=== PATIENT | male | born 1965 | race Caucasian/White ===

== ENCOUNTER → 2018-03-28 | Outpatient (CLI) | payer OTHER ==
--- NOTE | 2018-03-28 12:17 | MR ---
EXAMINATION TYPE: MR brain wo/w mrane wo/wcon DATE OF EXAM: 03/28/2018 COMPARISON: NONE HISTORY: Dizziness x 1-2 years TECHNIQUE: Multiplanar, multisequence images of the brain and brainstem is performed without and with IV contras t, utilizing 7.5 mL intravenous Gadavist . MRA of the neck was also performed. FINDINGS: Midline structures are unremarkable. There is a normal craniocervical junction. Echoplanar diffusion imaging is normal. There are normal vascular flow voids. The orbits are normal. There is no evidence of a CP angle mass lesion. No acute focal lesion, mass effect or midline shift is seen. I do not see evidence of intracranial bl ood. Following the intravenous administration of gadolinium, I do not see evidence of abnormal enhancement . The vertebral arteries are codominant. There is no significant stenosis in either carotid system. There is a normal origin of the great vess els. IMPRESSION: 1. NORMAL MRI OF THE BRAIN. 2. NO SIGNIFICANT CAROTID OR VERTEBRAL STENOSIS.
== END | disposition home or self-care (01) ==
LOC: RADMRIMAIN 08:47
PROVIDERS: ATTEND Psychiatry & Neurology Neurology
DX: R42 Dizziness and giddiness (principal); R51 Headache; R55 Syncope and collapse; H53.9 Unspecified visual disturbance
CPT/HCPCS: 70549; 70553; A9581

== ENCOUNTER → 2019-04-20 | Outpatient (CLI) | payer OTHER ==
--- NOTE | 2019-04-20 13:05 | XR ---
Abdomen HISTORY: Left lower quadrant pain Frontal view of the abdomen No comparisons There is a marked scoliosis. No evident obstruction, pneumoperitoneum or pathologic calcification. Brit ng bases are clear. IMPRESSION: Levoscoliosis centered at the upper lumbar spine.
== END | disposition home or self-care (01) ==
LOC: RADXRMAIN 11:16
PROVIDERS: ATTEND Family Medicine
DX: Z09 Encounter for follow-up examination after completed treatment for conditions other than malignant neoplasm (principal); Z87.442 Personal history of urinary calculi; M41.86 Other forms of scoliosis, lumbar region
CPT/HCPCS: 74018

== ENCOUNTER → 2019-09-07 | Outpatient (CLI) | payer OTHER ==
[2019-09-07 22:35] LABS: Total Protein,CSF 49 mg/dL (12-60)
[2019-09-08 08:38] LABS: CSF Tube Number 4
[2019-09-08 08:39] LABS: Appearance,CSF Clear; CSF Tube Volume 2.5
[2019-09-08 08:40] LABS: Nucleated Cells, CSF 6 u/L (0-5); Red Blood Cell,CSF 5 u/L (0-10)
[2019-09-10 14:16] LABS: IgG - CSF 2.1 mg/dL (0.0 - 3.4); IgG/Albumin Index (CSF) 0.55 (0.00 - 0.77); Immunoglobulin G 711 mg/dL (700 - 1600)
== END | disposition home or self-care (01) ==
LOC: LABWHC1 08:32
PROVIDERS: ATTEND Psychiatry & Neurology Pain Medicine
DX: R90.82 White matter disease, unspecified (principal); R42 Dizziness and giddiness; R51 Headache
CPT/HCPCS: 36415; 82040; 82042; 82784; 83873; 83916; 84157; 87529; 87801; 88108; 89050

== ENCOUNTER 2019-09-27 13:10 | Emergency (ER) | payer OTHER ==
[2019-09-27 13:20] VITALS: BP 124/58; PULSE 58; RESP 19; TEMP 98.6
--- NOTE | 2019-09-27 13:36 | ED ---
Lower Extremity Injury HPI - General Chief Complaint: Extremity Injury, Lower Stated Complaint: Foot Injury Time Seen by Provider: 09/27/19 13:22 Source: patient, RN notes reviewed Mode of arrival: wheelchair Limitations: no limitations - History of Present Illness Initial Comments: 54-year-old male presents emergency Department chief complaint left foot pain. Patient states in the middle of his sleep last night, he had a dream states that he kicked a wall. Patient states that his bed is right next to the wall . Patient complains of pain of his left first digit and first metatarsal. Patient denies any prior fractures. Patient denies any paresthesias. No history of gout. Patient does admit that he has a bunion. - Related Data Home Medications Medication Instructions Recorded Confirmed Meclizine HCl [Bonine] 25 mg PO TID PRN 09/27/19 09/27/19 Allergies Allergy/AdvReac Type Severity Reaction Status Date / Time No Known Allergies Allergy Verified 09/27/19 13:44 Review of Systems ROS Statement: Those systems with pertinent positive or pertinent negative responses have been documented in the HPI. ROS Other: All systems not noted in ROS Statement are negative. Past Medical History Past Medical History: No Reported History History of Any Multi-Drug Resistant Organisms: None Reported Past Surgical History: No Surgical Hx Reported Past Psychological History: Bipolar Smoking Status: Current every day smoker Past Alcohol Use History: Occasional Past Drug Use History: Marijuana General Exam Limitations: no limitations General appearance: alert, in no apparent distress Head exam: Present: atraumatic, normocephalic, normal inspection Eye exam: Present: normal appearance, PERRL, EOMI. Absent: scleral icterus, conjunctival injection, periorbital swelling Respiratory exam: Present: normal lung sounds bilaterally. Absent: respiratory distress, wheezes, rales, rhonchi, stridor Cardiovascular Exam: Present: regular rate, normal rhythm, normal heart sounds. Absent: systolic murmur, diastolic murmur, rubs, gallop, clicks Extremities exam: Present: other (Left foot first digit and first metatarsal region there is tenderness to palpation mild swelling no ecchymosis.) Course Vital Signs 09/27/19 13:18 Temperature 98.6 F Pulse Rate 58 L Respiratory 19 Rate Blood Pressure 124/58 O2 Sat by Pulse 95 Oximetry Medical Decision Making - Medical Decision Making X-ray of the foot are negative for acute fracture. Patient's left foot contusion. Patient we discharged return parameters discussed. Disposition Clinical Impression: Contusion of left foot, Sprain of left foot Disposition: HOME SELF-CARE Condition: Stable Instructions (If sedation given, give patient instructions): Foot Contusion (ED) Additional Instructions: Please return to the Emergency Department if symptoms worsen or any other concerns. Is patient prescribed a controlled substance at d/c from ED?: No Referrals: Whit Henley MD [Primary Care Provider] - 1-2 days Time of Disposition: 14:01
--- NOTE | 2019-09-27 13:56 | XR ---
EXAMINATION TYPE: XR foot complete LT DATE OF EXAM: 09/27/2019 COMPARISON: NONE HISTORY: Pain TECHNIQUE: Three views are submitted. FINDINGS: The osseous structures are intact. There is no acute fracture or dislocation. Joint spaces are p reserved. IMPRESSION: 1. No acute fracture or dislocation. If symptoms persist, follow-up exam in 7 to 10 days could be ob tained.
== END 2019-09-27 14:07 | disposition home or self-care (01) ==
LOC: EC 13:10
DX: S93.602A Unspecified sprain of left foot, initial encounter (principal); F17.200 Nicotine dependence, unspecified, uncomplicated; W22.01XA Walked into wall, initial encounter
CPT/HCPCS: 99283

== ENCOUNTER → 2019-12-15 | Outpatient (CLI) | payer OTHER ==
--- NOTE | 2019-12-15 10:44 | US ---
EXAMINATION TYPE: US thyroid st tissue head/neck DATE OF EXAM: 12/15/2019 COMPARISON: NONE CLINICAL HISTORY: E04.1 THYROID NODULE. thyroid nodule GLAND SIZE: Right Lobe: 5.3 x 2.1 x 1.9 cm Overall Parenchyma: homogenous Left Lobe: 5.2 x 2.6 x 1.9 cm Overall Parenchyma: homogeneous Isthmus Thickness: 0.4 cm NODULES RIGHT: # of nodules measured on right: 0 LEFT: # of nodules measured on left: 1 1. 2.0 X 1.5 x 1.4 cm isoechoic nodule at the mid pole with poorly defined margins; . This nodule is wider than tall and shows intranodular vascularity. Prior size: no prior ISTHMUS: # of nodules measured in the isthmus: 0 Bilateral neck scanned, lymph nodes noted bilaterally IMPRESSION: 1. Thyromegaly with 2 cm left thyroid nodule
--- NOTE | 2019-12-15 10:47 | US ---
EXAMINATION TYPE: US abdomen complete DATE OF EXAM: 12/15/2019 COMPARISON: NONE CLINICAL HISTORY: R10.9 LEFT FLANK PAIN,R10.13 RLQ PAIN. lower abdominal pain EXAM MEASUREMENTS: Liver Length: 15.2 cm Gallbladder Wall: 0.3 cm CBD: 0.3 cm Spleen: 8.9 cm Right Kidney: 10.5 x 3.1 x 3.3 cm Left Kidney: 10.8 x 4.5 x 3.9 cm Pancreas: visualized portions appear Limited by bowel gas Liver: wnl Gallbladder: no evidence of stones Evidence for sonographic Dunn's sign: no CBD: wnl Spleen: appears wnl Right Kidney: no evidence of hydronephrosis Left Kidney: no evidence of hydronephrosis or nephrolithiasis. Somewhat lobulated margins of the lef t renal cortex. Upper IVC: wnl Abd Aorta: wnl IMPRESSION: 1. Lobulated margin left renal cortex. This could be developmental however, recommend CT scan of the abdomen pelvis for further evaluation
== END | disposition home or self-care (01) ==
LOC: RADUSWWP 09:42
PROVIDERS: ATTEND Family Medicine
DX: N28.89 Other specified disorders of kidney and ureter (principal); E04.1 Nontoxic single thyroid nodule
CPT/HCPCS: 76536; 76700

== ENCOUNTER 2020-07-31 14:37 | Emergency (ER) | payer OTHER ==
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
[2020-07-31] MEDS ORDERED: SODIUM CHLORIDE 0.9% 1,000 ML IV STA (15:17)
[2020-07-31 15:54] LABS: Basophils % (A) 1 %; Eosinophils # (A) 0.1 k/uL (0-0.7); Eosinophils % (A) 2 %; HCT 41.2 % (39.0-53.0); HGB 13.6 gm/dL (13.0-17.5); Lymphocytes # (A) 1.5 k/uL (1.0-4.8); Lymphocytes % (A) 30 %; MCH 33.6 pg (25.0-35.0); MCV 101.9 fL (80.0-100.0); Mean Platelet Volume 7.9; Monocytes # (A) 0.6 k/uL (0-1.0); Monocytes % (A) 13 %; Neutrophils # (A) 2.6 k/uL (1.3-7.7); Neutrophils % (A) 52 %; Platelet Count 160 k/uL (150-450); RBC 4.04 m/uL (4.30-5.90); RDW 12.7 % (11.5-15.5)
[2020-07-31 16:01] LABS: Appearance,Urine Clear (Clear); Bilirubin,Urine Negative (Negative); Blood,Urine Negative (Negative); Color,Urine Yellow; Glucose,Urine (UA) Negative (Negative); Ketones,Urine Trace (Negative); Leukocyte Esterase,Urine Negative (Negative); Mucus,Urine Many /hpf; Nitrite,Urine Negative (Negative); Protein,Urine 1+ (Negative); RBC,Urine 2 /hpf (0-5); Specific Gravity,Urine 1.036 (1.001-1.035); WBC,Urine 1 /hpf (0-5)
[2020-07-31 16:03] LABS: ALT 76 U/L (4-49); AST 157 U/L (17-59); African American GFR (CKD) >90 (>60 ml/min/1.73 sqM); Albumin 4.6 g/dL (3.5-5.0); Alkaline Phosphatase 53 U/L (38-126); Anion Gap 8 mmol/L; Blood Urea Nitrogen 19 mg/dL (9-20); Calcium 9.8 mg/dL (8.4-10.2); Carbon Dioxide 30 mmol/L (22-30); Chloride 97 mmol/L (98-107); Glucose 111 mg/dL (74-99); Non-African American GFR(CKD) >90 (>60 ml/min/1.73 sqM); Potassium 4.1 mmol/L (3.5-5.1); Sodium 135 mmol/L (137-145); Total Bilirubin 1.4 mg/dL (0.2-1.3); Total Protein 6.8 g/dL (6.3-8.2)
[2020-07-31 16:51] VITALS: BP 134/78; PULSE 78; RESP 16; TEMP 98
== END 2020-07-31 16:50 | disposition home or self-care (01) ==
LOC: EC 14:37
DX: R63.0 Anorexia (principal); R94.5 Abnormal results of liver function studies; F17.200 Nicotine dependence, unspecified, uncomplicated
CPT/HCPCS: 36415; 80053; 81001; 83630; 85025; 87045; 87046; 87328; 87329; 96360; 99283

== ENCOUNTER 2020-11-03 16:59 | Emergency (ER) | payer OTHER ==
[2020-11-03 17:33] VITALS: BP 115/70; PULSE 103; RESP 18; TEMP 97.7
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
== END 2020-11-03 19:58 | disposition home or self-care (01) ==
LOC: EC 16:59
DX: S06.0X0A Concussion without loss of consciousness, initial encounter (principal); F17.200 Nicotine dependence, unspecified, uncomplicated; T74.11XA Adult physical abuse, confirmed, initial encounter; Y04.0XXA Assault by unarmed brawl or fight, initial encounter; Y07.9 Unspecified perpetrator of maltreatment and neglect
CPT/HCPCS: 70450; 99284

== ENCOUNTER 2021-04-15 13:46 | Emergency (ER) | payer OTHER ==
[2021-04-15 14:00] VITALS: RESP 18
[2021-04-15] MEDS ORDERED: METOCLOPRAMIDE 5 MG/ML 2 ML VIAL IVP STA (14:15)
[2021-04-15] MEDS ORDERED: HYDROmorphone 0.5 MG/0.5 ML SYRINGE IVP STA (14:15)
--- NOTE | 2021-04-15 14:18 | ED ---
General Adult HPI - General Chief complaint: Abdominal Pain Stated complaint: Abdominal Pain Time Seen by Provider: 04/15/21 14:03 Source: patient, EMS Mode of arrival: EMS Limitations: no limitations - History of Present Illness Initial comments: Dictation was produced using Smart Ball[employer] dictation software. please excuse any grammatical, word or spelling errors. Chief Complaint: 56-year-old male with past medical history of unspecified g allbladder disease, alcohol abuse and marijuana use presents to the emergency department for abdominal pain nausea History of Present Illness: Is 56-year-old male he does not have any significant comorbidities. States that he is here today for 4 days history of abdominal pain. States that it's in the left flank left upper abdomen and radiates to the abdomen. States that it severe. These have been nonbilious nonbloody emesis. Patient's history of kidney stones that required lithotripsy several years ago. He stopped was told several years ago also that he had gallbladder disease however he hasn't had any gallbladder issues recently. States that he has not been eating or drinking because patient complains of pain with ingestion. The ROS documented in this emergency department record has been reviewed and confirmed by me. Those systems with pertinent positive or negative responses have been documented in the HPI. All other systems are other negative and/or noncontributory. PHYSICAL EXAM: General Impression: Alert and oriented x3, not in acute distress HEENT: Normocephalic atraumatic, extra-ocular movements intact, pupils equal and reactive to light bilaterally, mucous membranes moist. Cardiovascular: Heart regular rate and rhythm Chest: Able to complete full sentences, no retractions, no tachypnea Abdomen: abdomen soft, tenderness to palpation of the left upper quadrant, non- distended, no organomegaly Musculoskeletal: Pulses present and equal in all extremities, no peripheral edema Motor: no focal deficits noted Neurological: CN II-XII grossly intact, no focal motor or sensory deficits noted Skin: Intact with no visualized rashes Psych: Normal affect and mood ED course: 56-year-old male presents to emergency department for severe abdominal pain and nausea. Vital signs upon arrival are within acceptable limits. Laboratory evaluation obtained. CBC is unremarkable. Metabolic panel shows bicarb of 21 with a gap of 18. Patient has been drinking alcohol. Alcohol level LXV. AST 376 to the ALT 135. This likely represents alcoholic ketoacidosis with alcoholic hepatitis. Patient reevaluated at bedside and states that he does drink several ounces of whiskey daily. Patient states that he has had withdrawals in the past. Computed tomography scan of the abdomen and pelvis was obtained showing no definite acute at about 8. There is hepatomegaly with steatosis. Disposition options were discussed with patient. Patient is agreeable with discharge. Patient likely suffering from symptoms of gastritis. Patient denies having any withdrawal symptoms currently. He wants to be discharge. Patient given prescription for antibiotics, Librium and panto prazole. Patient given referral to GI doctor. Return precautions discussed. EKG interpretation: Ventricular rate 85, normal sinus rhythm,. Interval 126, QRS 90, QTC 480. No TX prolongation, no QTC prolongation, no ST or T-wave changes noted. Overall, this EKG is unremarkable - Related Data Home Medications Medication Instructions Recorded Confirmed Meclizine HCl [Bonine] 25 mg PO TID PRN 09/27/19 09/27/19 Previous Rx's Medication Instructions Recorded Ondansetron Odt [Zofran Odt] 4 mg PO Q8HR PRN #24 tab 04/15/21 Pantoprazole Sodium [Protonix] 40 mg PO DAILY #24 tablet. 04/15/21 chlordiazePOXIDE HCl [Librium] 25 mg PO QID 3 Days #15 capsule 04/15/21 Allergies Allergy/AdvReac Type Severity Reaction Status Date / Time No Known Allergies Allergy Verified 11/03/20 17:33 Review of Systems ROS Statement: Those systems with pertinent positive or pertinent negative responses have been documented in the HPI. ROS Other: All systems not noted in ROS Statement are negative. Past Medical History Past Medical History: No Reported History Additional Past Medical History / Comment(s): vertigo, kidney stones, ETOH abuse History of Any Multi-Drug Resistant Organisms: None Reported Past Surgical History: No Surgical Hx Reported Additional Past Surgical History / Comment(s): lithrothripsy Past Psychological History: Bipolar Smoking Status: Current every day smoker Past Alcohol Use History: Abuse, Heavy Past Drug Use History: Marijuana General Exam Limitations: no limitations Course Vital Signs 04/15/21 04/15/21 13:56 15:31 Temperature 98.2 F 98.1 F Pulse Rate 84 91 Respiratory 18 18 Rate Blood Pressure 149/90 121/78 O2 Sat by Pulse 98 98 Oximetry Medical Decision Making - Lab Data Result diagrams: 04/15/21 14:20 04/15/21 14:20 Lab Results 04/15/21 04/15/21 Range/Units 14:20 14:20 WBC 4.9 (3.8-10.6) k/uL RBC 4.13 L (4.30-5.90) m/uL Hgb 14.5 (13.0-17.5) gm/dL Hct 40.7 (39.0-53.0) % MCV 98.7 (80.0-100.0) fL MCH 35.1 H (25.0-35.0) pg MCHC 35.6 (31.0-37.0) g/dL RDW 12.5 (11.5-15.5) % Plt Count 157 (150-450) k/uL MPV 7.8 Neutrophils % 61 % Lymphocytes % 26 % Monocytes % 9 % Eosinophils % 1 % Basophils % 1 % Neutrophils # 3.0 (1.3-7.7) k/uL Lymphocytes # 1.3 (1.0-4.8) k/uL Monocytes # 0.4 (0-1.0) k/uL Eosinophils # 0.1 (0-0.7) k/uL Basophils # 0.0 (0-0.2) k/uL Sodium 140 (137-145) mmol/L Potassium 3.7 (3.5-5.1) mmol/L Chloride 101 (98-107) mmol/L Carbon Dioxide 21 L (22-30) mmol/L Anion Gap 18 mmol/L BUN 16 (9-20) mg/dL Creatinine 1.01 (0.66-1.25) mg/dL Est GFR (CKD-EPI)AfAm >90 (>60 ml/min/1.73 sqM) Est GFR (CKD-EPI)NonAf 84 (>60 ml/min/1.73 sqM) Glucose 110 H (74-99) mg/dL Calcium 10.8 H (8.4-10.2) mg/dL Total Bilirubin 1.5 H (0.2-1.3) mg/dL AST 376 H (17-59) U/L ALT 135 H (4-49) U/L Alkaline Phosphatase 76 (38-126) U/L Total Protein 7.9 (6.3-8.2) g/dL Albumin 5.5 H (3.5-5.0) g/dL Lipase 51 (23-300) U/L Serum Alcohol 65 mg/dL Disposition Clinical Impression: Nausea & vomiting, Gastritis Disposition: HOME SELF-CARE Condition: Fair Instructions (If sedation given, give patient instructions): Abuse of Alcohol (ED), Gastritis (ED) Prescriptions: chlordiazePOXIDE HCl [Librium] 25 mg PO QID 3 Days #15 capsule Pantoprazole Sodium [Protonix] 40 mg PO DAILY #24 tablet. Ondansetron Odt [Zofran Odt] 4 mg PO Q8HR PRN #24 tab PRN Reason: Nausea Is patient prescribed a controlled substance at d/c from ED?: Yes If prescribed controlled substance>3 days was MAPS reviewed?: Prescribed <3 Days Referrals: Whit Henley MD [Primary Care Provider] - 1-2 days Shadi Yoo MD [STAFF PHYSICIAN] - 1-2 days Time of Disposition: 16:10
[2021-04-15 14:38] LABS: Basophils % (A) 1 %; Eosinophils # (A) 0.1 k/uL (0-0.7); Eosinophils % (A) 1 %; HCT 40.7 % (39.0-53.0); HGB 14.5 gm/dL (13.0-17.5); Lymphocytes # (A) 1.3 k/uL (1.0-4.8); Lymphocytes % (A) 26 %; MCH 35.1 pg (25.0-35.0); MCHC 35.6 g/dL (31.0-37.0); MCV 98.7 fL (80.0-100.0); Mean Platelet Volume 7.8; Monocytes # (A) 0.4 k/uL (0-1.0); Monocytes % (A) 9 %; Neutrophils % (A) 61 %; Platelet Count 157 k/uL (150-450); RBC 4.13 m/uL (4.30-5.90); RDW 12.5 % (11.5-15.5); WBC 4.9 k/uL (3.8-10.6)
[2021-04-15 14:57] LABS: ALT 135 U/L (4-49); AST 376 U/L (17-59); African American GFR (CKD) >90 (>60 ml/min/1.73 sqM); Albumin 5.5 g/dL (3.5-5.0); Alcohol 65 mg/dL; Alkaline Phosphatase 76 U/L (38-126); Anion Gap 18 mmol/L; Blood Urea Nitrogen 16 mg/dL (9-20); Calcium 10.8 mg/dL (8.4-10.2); Carbon Dioxide 21 mmol/L (22-30); Chloride 101 mmol/L (98-107); Glucose 110 mg/dL (74-99); Lipase 51 U/L (23-300); Non-African American GFR(CKD) 84 (>60 ml/min/1.73 sqM); Potassium 3.7 mmol/L (3.5-5.1); Sodium 140 mmol/L (137-145); Total Bilirubin 1.5 mg/dL (0.2-1.3); Total Protein 7.9 g/dL (6.3-8.2)
--- NOTE | 2021-04-15 15:55 | CT ---
EXAMINATION TYPE: CT abdomen pelvis w con DATE OF EXAM: 04/15/2021 COMPARISON: Ultrasound 12/15/2019. HISTORY: abdominal pain CT DLP: 563.1 mGycm Automated exposure control for dose reduction was used. TECHNIQUE: Helical acquisition of images was performed from the lung bases through the pelvis. CONTRAST: Performed without Oral Contrast and with IV Contrast, patient injected with 100 mL of Isovue 300. FINDINGS: LUNG BASES: No significant abnormality is appreciated. LIVER/GB: No acute abnormality is appreciated. Hepatomegaly with steatosis. PANCREAS: No significant abnormality is seen. SPLEEN: No significant abnormality is seen. ADRENALS: No significant abnormality is seen. KIDNEYS: No significant abnormality is seen. FREE AIR: No free air is visualized. RETROPERITONEAL ADENOPATHY: None visualized REPRODUCTIVE ORGANS: No significant abnormality is seen URINARY BLADDER: No significant abnormality is seen. PELVIC ADENOPATHY: None visualized. OSSEOUS STRUCTURES: No acute abnormality is seen. S-shaped scoliosis. Otherwise mild to moderate lum bar spondylosis. BOWEL: No significant abnormality is seen. OTHER: None IMPRESSION: NO DEFINITE ACUTE ABNORMALITY. HEPATOMEGALY WITH STEATOSIS. Scoliosis.
[2021-04-15] MEDS ORDERED: SODIUM CHLORIDE 0.9% 1,000 ML IV STA (15:56)
[2021-04-15] MEDS ORDERED: MAG HYDROX/AL HYDROX/SIMETH 30 ML, HYOSCYAMINE ELIXIR 10 ML, LIDOCAINE VISCOUS 2% 10 ML PO STA ×3 (16:04)
[2021-04-15 17:00] VITALS: BP 126/82; PULSE 78; TEMP 98.5
== END 2021-04-15 17:00 | disposition home or self-care (01) ==
LOC: EC 13:46
DX: K29.70 Gastritis, unspecified, without bleeding (principal); F17.200 Nicotine dependence, unspecified, uncomplicated; F12.90 Cannabis use, unspecified, uncomplicated; Z87.442 Personal history of urinary calculi
CPT/HCPCS: 36415; 93005; 80053; 83690; 85025; 74177; 99284; 96374; 96375; 96361; G0480; J2765; J1170; Q9967; 80320

== ENCOUNTER 2021-07-08 21:17 | Emergency (ER) | payer OTHER ==
[2021-07-08] MEDS ORDERED: KETOROLAC 15 MG/ML 1 ML VIAL IVP STA (21:39)
[2021-07-08] MEDS ORDERED: METOCLOPRAMIDE 5 MG/ML 2 ML VIAL IVP STA (21:39)
[2021-07-08] MEDS ORDERED: SODIUM CHLORIDE 0.9% 1,000 ML IV ONE (21:39)
--- NOTE | 2021-07-08 21:44 | ED ---
Abdominal Pain HPI - General Chief Complaint: Abdominal Pain Stated Complaint: poss kidney stone Time Seen by Provider: 07/08/21 21:26 Source: patient Mode of arrival: ambulatory Limitations: no limitations - History of Present Illness Initial Comments: This patient is a 56-year-old man who presents with complaint of vomiting and left flank pain. The patient was in his usual state of health until , going into Friday, when he started having nausea and has also had vomiting. He denied having any pain until yesterday when he started having left flank pain that he states remind him of previous kidney stone. He has continued to have multiple rounds of vomiting today stating that is been going on all day. He has not noted fever or chills. No change in bowel movements. No change in urination noted. MD Complaint: abdominal pain -: days(s) Location: L flank Radiation: none Migration to: no migration Severity: severe Quality: sharp Consistency: constant Improves With: nothing Worsens With: nothing Associated Symptoms: nausea, vomiting - Related Data Home Medications Medication Instructions Recorded Confirmed Desvenlafaxine [Pristiq ER] 100 mg PO DAILY 07/08/21 07/08/21 Divalproex ER [Depakote ER] 500 mg PO HS 07/08/21 07/08/21 [place] Carbonate 900 mg PO DAILY 07/08/21 07/08/21 QUEtiapine [SEROquel] 100 mg PO HS PRN 07/08/21 07/08/21 Allergies Allergy/AdvReac Type Severity Reaction Status Date / Time No Known Allergies Allergy Verified 07/08/21 22:21 Review of Systems ROS Statement: Those systems with pertinent positive or pertinent negative responses have been documented in the HPI. ROS Other: All systems not noted in ROS Statement are negative. Constitutional: Denies: fever, chills Respiratory: Denies: cough, dyspnea Cardiovascular: Denies: chest pain, palpitations, edema, syncope Gastrointestinal: Reports: abdominal pain, nausea, vomiting. Denies: diarrhea, constipation, hematemesis, melena, hematochezia Genitourinary: Denies: dysuria, frequency, hematuria, testicular pain, testicular mass Musculoskeletal: Denies: back pain Skin: Denies: rash Neurological: Denies: headache, weakness, numbness Past Medical History Past Medical History: No Reported History Additional Past Medical History / Comment(s): vertigo, kidney stones, ETOH abuse History of Any Multi-Drug Resistant Organisms: None Reported Past Surgical History: No Surgical Hx Reported Additional Past Surgical History / Comment(s): lithrothripsy Past Psychological History: Bipolar Smoking Status: Current every day smoker Past Alcohol Use History: Abuse, Heavy Past Drug Use History: Marijuana General Exam Limitations: no limitations General appearance: alert, in no apparent distress Head exam: Present: atraumatic, normocephalic Eye exam: Present: normal appearance. Absent: scleral icterus, conjunctival injection ENT exam: Present: normal oropharynx Neck exam: Present: normal inspection Respiratory exam: Present: normal lung sounds bilaterally. Absent: respiratory distress, wheezes, rales, rhonchi, stridor Cardiovascular Exam: Present: regular rate, normal rhythm, normal heart sounds. Absent: systolic murmur, diastolic murmur, rubs, gallop GI/Abdominal exam: Present: soft. Absent: distended, tenderness, guarding, rebound, rigid, mass Extremities exam: Present: normal inspection, normal capillary refill. Absent: pedal edema, calf tenderness Back exam: Present: normal inspection. Absent: CVA tenderness (R), CVA tenderness (L), paraspinal tenderness, vertebral tenderness Neurological exam: Present: alert Skin exam: Present: warm, dry, intact, normal color. Absent: rash Course Vital Signs 07/08/21 07/08/21 21:18 23:21 Temperature 97.9 F 98.7 F Pulse Rate 97 96 Respiratory 20 18 Rate Blood Pressure 123/81 147/99 O2 Sat by Pulse 99 100 Oximetry Medical Decision Making - Lab Data Result diagrams: 07/08/21 21:57 07/08/21 21:57 Lab Results 07/08/21 07/08/21 07/08/21 Range/Units 21:57 21:57 21:57 WBC 4.5 (3.8-10.6) k/uL RBC 4.11 L (4.30-5.90) m/uL Hgb 14.8 (13.0-17.5) gm/dL Hct 41.6 (39.0-53.0) % MCV 101.4 H (80.0-100.0) fL MCH 36.1 H (25.0-35.0) pg MCHC 35.6 (31.0-37.0) g/dL RDW 13.0 (11.5-15.5) % Plt Count 191 (150-450) k/uL MPV 7.1 Neutrophils % 69 % Lymphocytes % 21 % Monocytes % 5 % Eosinophils % 1 % Basophils % 1 % Neutrophils # 3.1 (1.3-7.7) k/uL Lymphocytes # 0.9 L (1.0-4.8) k/uL Monocytes # 0.2 (0-1.0) k/uL Eosinophils # 0.0 (0-0.7) k/uL Basophils # 0.1 (0-0.2) k/uL Sodium 137 (137-145) mmol/L Potassium 3.6 (3.5-5.1) mmol/L Chloride 97 L (98-107) mmol/L Carbon Dioxide 23 (22-30) mmol/L Anion Gap 17 mmol/L BUN 15 (9-20) mg/dL Creatinine 0.74 (0.66-1.25) mg/dL Est GFR (CKD-EPI)AfAm >90 (>60 ml/min/1.73 sqM) Est GFR (CKD-EPI)NonAf >90 (>60 ml/min/1.73 sqM) Glucose 114 H (74-99) mg/dL Calcium 10.4 H (8.4-10.2) mg/dL Total Bilirubin 1.5 H (0.2-1.3) mg/dL AST 159 H (17-59) U/L ALT 92 H (4-49) U/L Alkaline Phosphatase 75 (38-126) U/L Total Protein 7.7 (6.3-8.2) g/dL Albumin 5.3 H (3.5-5.0) g/dL Amylase 41 (30-110) U/L Lipase 30 (23-300) U/L Urine Color Yellow Urine Appearance Clear (Clear) Urine pH 5.5 (5.0-8.0) Ur Specific [place] 1.031 (1.001-1.035) Urine Protein 1+ H (Negative) Urine Glucose (UA) Negative (Negative) Urine Ketones 2+ H (Negative) Urine Blood Negative (Negative) Urine Nitrite Negative (Negative) Urine Bilirubin Negative (Negative) Urine Urobilinogen 4.0 (<2.0) mg/dL Ur Leukocyte Esterase Negative (Negative) Urine RBC 1 (0-5) /hpf Urine WBC 1 (0-5) /hpf Ur Squamous Epith Cells 1 (0-4) /hpf Hyaline Casts 1 (0-2) /lpf Urine Mucus Occasional H (None) /hpf Disposition Clinical Impression: Flank pain, Vomiting Disposition: HOME SELF-CARE Condition: Good Instructions (If sedation given, give patient instructions): Abdominal Pain (ED) Is patient prescribed a controlled substance at d/c from ED?: No Referrals: Whit Henley MD [Primary Care Provider] - 1-2 days
[2021-07-08 22:10] LABS: Basophils # (A) 0.1 k/uL (0-0.2); Basophils % (A) 1 %; Eosinophils % (A) 1 %; HCT 41.6 % (39.0-53.0); HGB 14.8 gm/dL (13.0-17.5); Lymphocytes # (A) 0.9 k/uL (1.0-4.8); Lymphocytes % (A) 21 %; MCH 36.1 pg (25.0-35.0); MCHC 35.6 g/dL (31.0-37.0); MCV 101.4 fL (80.0-100.0); Mean Platelet Volume 7.1; Monocytes # (A) 0.2 k/uL (0-1.0); Monocytes % (A) 5 %; Neutrophils # (A) 3.1 k/uL (1.3-7.7); Neutrophils % (A) 69 %; Platelet Count 191 k/uL (150-450); RBC 4.11 m/uL (4.30-5.90); WBC 4.5 k/uL (3.8-10.6)
[2021-07-08 22:15] LABS: Appearance,Urine Clear (Clear); Bilirubin,Urine Negative (Negative); Blood,Urine Negative (Negative); Color,Urine Yellow; Glucose,Urine (UA) Negative (Negative); Hyaline Casts,Urine 1 /lpf (0-2); Ketones,Urine 2+ (Negative); Leukocyte Esterase,Urine Negative (Negative); Mucus,Urine Occasional /hpf; Nitrite,Urine Negative (Negative); PH, Urine 5.5 (5.0-8.0); Protein,Urine 1+ (Negative); RBC,Urine 1 /hpf (0-5); Specific Gravity,Urine 1.031 (1.001-1.035); Squamous Epithelial Cell,Urine 1 /hpf (0-4); WBC,Urine 1 /hpf (0-5)
[2021-07-08 22:22] LABS: ALT 92 U/L (4-49); AST 159 U/L (17-59); African American GFR (CKD) >90 (>60 ml/min/1.73 sqM); Albumin 5.3 g/dL (3.5-5.0); Alkaline Phosphatase 75 U/L (38-126); Amylase 41 U/L (30-110); Anion Gap 17 mmol/L; Blood Urea Nitrogen 15 mg/dL (9-20); Calcium 10.4 mg/dL (8.4-10.2); Carbon Dioxide 23 mmol/L (22-30); Chloride 97 mmol/L (98-107); Glucose 114 mg/dL (74-99); Lipase 30 U/L (23-300); Non-African American GFR(CKD) >90 (>60 ml/min/1.73 sqM); Potassium 3.6 mmol/L (3.5-5.1); Sodium 137 mmol/L (137-145); Total Bilirubin 1.5 mg/dL (0.2-1.3); Total Protein 7.7 g/dL (6.3-8.2)
[2021-07-08] MEDS ORDERED: MORPHINE SULFATE 4 MG/ML SYRINGE IV STA (23:01)
[2021-07-08 23:23] VITALS: BP 147/99; PULSE 96; RESP 18; TEMP 98.7
== END 2021-07-09 00:04 | disposition home or self-care (01) ==
LOC: EC 21:17
DX: R10.9 Unspecified abdominal pain (principal); R11.10 Vomiting, unspecified; F31.9 Bipolar disorder, unspecified; F17.200 Nicotine dependence, unspecified, uncomplicated; F12.90 Cannabis use, unspecified, uncomplicated; Z87.442 Personal history of urinary calculi
CPT/HCPCS: 36415; 80053; 82150; 83690; 85025; 81001; 99284; 96374; 96375 ×2; 96361; J2270; J2765; J1885

== ENCOUNTER 2021-10-11 23:57 | Emergency (ER) | payer OTHER ==
[2021-10-12 00:04] VITALS: TEMP 98
[2021-10-12] MEDS ORDERED: ZIPRASIDONE 20 MG VIAL IM STA (00:50)
[2021-10-12] MEDS ORDERED: LORazepam 2 MG/ML INJ IM STA (00:50)
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
[2021-10-12 01:36] LABS: Basophils % (A) 1 %; Eosinophils # (A) 0.1 k/uL (0-0.7); Eosinophils % (A) 2 %; HCT 36.7 % (39.0-53.0); HGB 12.5 gm/dL (13.0-17.5); Lymphocytes # (A) 1.8 k/uL (1.0-4.8); Lymphocytes % (A) 30 %; MCH 34.2 pg (25.0-35.0); MCHC 34.2 g/dL (31.0-37.0); Mean Platelet Volume 7.1; Monocytes # (A) 0.3 k/uL (0-1.0); Monocytes % (A) 6 %; Neutrophils # (A) 3.7 k/uL (1.3-7.7); Neutrophils % (A) 60 %; Platelet Count 191 k/uL (150-450); RBC 3.67 m/uL (4.30-5.90); RDW 12.4 % (11.5-15.5); WBC 6.1 k/uL (3.8-10.6)
[2021-10-12 01:54] LABS: Chloride 107 mmol/L (98-107)
[2021-10-12 01:57] LABS: Acetaminophen <10.0 ug/mL; African American GFR (CKD) >90 (>60 ml/min/1.73 sqM); Anion Gap 7 mmol/L; Blood Urea Nitrogen 9 mg/dL (9-20); Calcium 9.3 mg/dL (8.4-10.2); Carbon Dioxide 25 mmol/L (22-30); Glucose 98 mg/dL (74-99); Non-African American GFR(CKD) >90 (>60 ml/min/1.73 sqM); Potassium 3.8 mmol/L (3.5-5.1); Salicylate <1.0 mg/dL; Sodium 139 mmol/L (137-145)
[2021-10-12 02:24] LABS: Alcohol 178 mg/dL
[2021-10-12 09:33] VITALS: BP 118/74; PULSE 78; RESP 18
== END 2021-10-12 09:31 | disposition home or self-care (01) ==
LOC: EC 23:57
DX: F10.129 Alcohol abuse with intoxication, unspecified (principal); F31.9 Bipolar disorder, unspecified; F17.200 Nicotine dependence, unspecified, uncomplicated; F12.90 Cannabis use, unspecified, uncomplicated; Y90.6 Blood alcohol level of 120-199 mg/100 ml
CPT/HCPCS: 80048; 85025; 80143; 80179; 99284; 96372 ×2; G0480; J2060; J3486; 80320

== ENCOUNTER 2022-08-02 07:21 | Emergency (ER) | payer OTHER ==
[2022-08-02 07:28] VITALS: RESP 18
--- NOTE | 2022-08-02 07:42 | ED ---
General Adult HPI - General Chief complaint: Psychiatric Symptoms Stated complaint: hallucinations Time Seen by Provider: 08/02/22 07:25 Source: patient, police, EMS, RN notes reviewed, old records reviewed Mode of arrival: EMS - History of Present Illness Initial comments: 57-year-old male presenting for evaluation of increased hallucination and behavior. Patient is currently incarcerated. He has been in half-way for 10 days. Patient did have previous alcohol use. He also has history of bipolar currently not on any medications. 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 - Related Data Previous Rx's Medication Instructions Recorded Desvenlafaxine Succinate [Pristiq 50 mg PO DAILY #30 tab 08/02/22 ER] Divalproex ER [Depakote ER] 500 mg PO HS #30 tab 08/02/22 Ergocalciferol [Vitamin D2 (1250 1,250 mcg PO Q7D #5 cap 08/02/22 Mcg = 17180 Iu)] [place] Carbonate 900 mg PO DAILY 30 Days cap 08/02/22 QUEtiapine [SEROquel] 100 mg PO BID #60 tab 08/02/22 Allergies Allergy/AdvReac Type Severity Reaction Status Date / Time No Known Allergies Allergy Verified 08/02/22 07:27 Review of Systems ROS Statement: Those systems with pertinent positive or pertinent negative responses have been documented in the HPI. ROS Other: All systems not noted in ROS Statement are negative. Past Medical History Past Medical History: No Reported History Additional Past Medical History / Comment(s): vertigo, kidney stones, ETOH abuse History of Any Multi-Drug Resistant Organisms: None Reported Past Surgical History: No Surgical Hx Reported Additional Past Surgical History / Comment(s): lithrothripsy, cataracts Past Psychological History: Bipolar Smoking Status: Former smoker Past Alcohol Use History: Abuse, Daily, Heavy Past Drug Use History: Marijuana General Exam General appearance: alert, in no apparent distress Head exam: Present: atraumatic, normocephalic Eye exam: Present: normal appearance, PERRL ENT exam: Present: normal exam Neck exam: Present: normal inspection. Absent: tenderness, meningismus Respiratory exam: Present: normal lung sounds bilaterally. Absent: respiratory distress, wheezes Cardiovascular Exam: Present: regular rate, normal rhythm GI/Abdominal exam: Present: soft. Absent: distended, tenderness, guarding Extremities exam: Present: normal inspection, normal capillary refill Neurological exam: Present: alert. Absent: oriented X3, motor sensory deficit Psychiatric exam: Present: anxious, other (Paranoid, visual and auditory hallucinations) Skin exam: Present: warm, dry, intact Course Vital Signs 08/02/22 08/02/22 07:24 07:54 Temperature 97.2 F L Pulse Rate 112 H Respiratory 18 18 Rate Blood Pressure 122/81 O2 Sat by Pulse 95 Oximetry Medical Decision Making - Medical Decision Making Patient has been evaluated by EPS after medical clearance. [place] to be state safe for discharge. I agree with this assessment. I did refill the patient's home medications he is returning to the local half-way. Disposition Clinical Impression: Psychosis, Bipolar disorder Disposition: HOME SELF-CARE Condition: Fair Additional Instructions: Please follow up with community mental health. Prescriptions: Divalproex ER [Depakote ER] 500 mg PO HS #30 tab [place] Carbonate 900 mg PO DAILY 30 Days cap Desvenlafaxine Succinate [Pristiq ER] 50 mg PO DAILY #30 tab QUEtiapine [SEROquel] 100 mg PO BID #60 tab Ergocalciferol [Vitamin D2 (1250 Mcg = 63672 Iu)] 1,250 mcg PO Q7D #5 cap Is patient prescribed a controlled substance at d/c from ED?: No Referrals: Whit Henley MD [Primary Care Provider] - 1-2 days Time of Disposition: 12:04
[2022-08-02] MEDS: QUEtiapine 200 MG TAB PO ONE (11:38)
[2022-08-02 12:13] VITALS: BP 150/80; PULSE 160; TEMP 98.4
== END 2022-08-02 12:24 | disposition home or self-care (01) ==
LOC: EC 07:21
DX: F29 Unspecified psychosis not due to a substance or known physiological condition (principal); F31.9 Bipolar disorder, unspecified; Z87.891 Personal history of nicotine dependence
CPT/HCPCS: 82075; 99284

== ENCOUNTER 2022-10-30 12:20 | Inpatient (IN) | payer MEDICAID, OTHER ==
[2022-10-30] MEDS ORDERED: DIPH,PERTUS(ACELL)TETVAC-LF 0.5 ML VIAL IM ONE (12:53)
--- NOTE | 2022-10-30 12:53 | ED ---
General Adult HPI - General Chief complaint: Psychiatric Symptoms Stated complaint: mental health Time Seen by Provider: 10/30/22 12:35 Source: patient, EMS, RN notes reviewed, old records reviewed Mode of arrival: EMS Limitations: no limitations - History of Present Illness Initial comments: This a 57-year-old male who presents emergency Department stating he has been off his psychotropic meds because he doesn't have prescription for them. Patient states the last dose he took was Friday. Patient states he is getting very depressed and hopeless and he fears that he might hurt himself. Patient is looking for some help from the mental health department. Patient states he was drunk last night and he fell into a pine tree and hurt his face around the right orbit. Patient denies any visual disturbance or pain in the eye. Patient denies any fever chills per patient denies any difficulty breathing shortest breath per patient denies any neck pain patient denies any head pain. Patient denies any abdominal pain. Patient denies any nausea vomiting or diarrhea. Patient states currently he is not suicidal but he fears he's had in that dire ction quickly. - Related Data Home Medications Medication Instructions Recorded Confirmed [place] Carbonate 900 mg PO DIRECTED 10/30/22 10/30/22 QUEtiapine [SEROquel] 200 mg PO DIRECTED 10/30/22 10/30/22 Allergies Allergy/AdvReac Type Severity Reaction Status Date / Time No Known Allergies Allergy Verified 10/30/22 15:14 Review of Systems ROS Statement: Those systems with pertinent positive or pertinent negative responses have been documented in the HPI. ROS Other: All systems not noted in ROS Statement are negative. Past Medical History Past Medical History: Myocardial Infarction ([place]) Additional Past Medical History / Comment(s): vertigo, kidney stones, ETOH abuse, scoliosis History of Any Multi-Drug Resistant Organisms: None Reported Past Surgical History: No Surgical Hx Reported Additional Past Surgical History / Comment(s): lithrothripsy, cataracts Past Psychological History: Bipolar Smoking Status: Former smoker Past Alcohol Use History: Abuse, Daily, Heavy Past Drug Use History: Marijuana General Exam - General Exam Comments Initial Comments: GENERAL: Patient is well-developed and well-nourished. Patient is nontoxic and well- hydrated and is in mild distress. ENT: Neck is soft and supple. No significant lymphadenopathy is noted. Oropharynx is clear. Moist mucous membranes. Neck has full range of motion without eliciting any pain. EYES: The sclera were anicteric and conjunctiva were pink and moist. Extraocular movements were intact and pupils were equal round and reactive to light. Eyelids were unremarkable. PULMONARY: Unlabored respirations. Good breath sounds bilaterally. No audible rales rhonchi or wheezing was noted. CARDIOVASCULAR: There is a regular rate and rhythm without any murmurs gallops or rubs. ABDOMEN: Soft and nontender with normal bowel sounds. SKIN: She has some abrasions to the lateral aspect of the left orbit in the region of the zygomatic arch.Patient has some tenderness infraorbital region. Patient also has some swelling in the infraorbital region NEUROLOGIC: Patient is alert and oriented x3. Cranial nerves II through XII are grossly intact. Motor and sensory are also intact. Normal speech, volume and content. Symmetrical smile. MUSCULOSKELETAL: Normal extremities with adequate strength and full range of motion. No lower extremity swelling or edema. No calf tenderness. LYMPHATICS: No significant lymphadenopathy is noted PSYCHIATRIC: Normal psychiatric evaluation. Limitations: no limitations Course Vital Signs 10/30/22 12:31 Temperature 97 F L Pulse Rate 91 Respiratory 15 Rate Blood Pressure 119/65 O2 Sat by Pulse 98 Oximetry Medical Decision Making - Medical Decision Making CT of the brain was interpreted by me. There was no acute hemorrhage or masses noted. CT of the C-spine was interpreted by me. CT showed no acute fracture. CT of the orbits was interpreted by me. CT of the orbit showed no acute fracture. EPS evaluated the patient and the patient was saying he was suicidal and wanted to hang himself so EPS spoke with the psychiatrist they determined that the patient needed to be admitted and so the patient will be transferred to a facility that can accept him. I filled out a clinical certification to have the patient admitted. - Lab Data Lab Results 10/30/22 Range/Units 16:07 Urine Opiates Screen Not Detected (NotDetected) Ur Oxycodone Screen Not Detected (NotDetected) Urine Methadone Screen Not Detected (NotDetected) Ur Propoxyphene Screen Not Detected (NotDetected) Ur Barbiturates Screen Not Detected (NotDetected) U Tricyclic Antidepress Not Detected (NotDetected) Ur Phencyclidine Scrn Not Detected (NotDetected) Ur Amphetamines Screen Not Detected (NotDetected) U Methamphetamines Scrn Not Detected (NotDetected) U Benzodiazepines Scrn Not Detected (NotDetected) Urine Cocaine Screen Detected H (NotDetected) U Marijuana (THC) Screen Not Detected (NotDetected) Disposition Clinical Impression: Depression, Suicidal ideation Disposition: TRANSFER TO PSYCH HOSP/UNIT Referrals: None,Stated [Primary Care Provider] - 1-2 days Time of Disposition: 18:27
--- NOTE | 2022-10-30 13:33 | CT ---
EXAMINATION TYPE: CT orbits wo con DATE OF EXAM: 10/30/2022 COMPARISON: None HISTORY: Fell into pine tree, Rt sided orbital contusion CT DLP: 906.6 mGycm Automated exposure control for dose reduction was used. FINDINGS: Intracranial structures are symmetric. Orbits are symmetric. Orbits have a normal appearance. There is preseptal edema on the right with no evidence of orbital fracture. Sinuses are clear. Shirley rium intact. Nasopharynx and oropharynx symmetric. IMPRESSION: PRESEPTAL AND RIGHT PERIORBITAL SOFT TISSUE EDEMA WITH NO EVIDENCE OF ACUTE FRACTURE.
--- NOTE | 2022-10-30 13:46 | CT ---
EXAMINATION TYPE: CT brain cspine wo con DATE OF EXAM: 10/30/2022 COMPARISON: 11/03/2020 HISTORY: Fell into pine tree, Rt sided orbital contusion CT DLP: 906.6 mGycm Automated exposure control for dose reduction was used. TECHNIQUE: CT scan of the head and cervical spine are performed without contrast. FINDINGS: There is no acute intracranial hemorrhage, mass effect, or midline shift identified. Mild generalized degenerative change. The globes are intact and the visualized sinuses are clear. There is a scoliotic curvature with multilevel degenerative disc disease and facet arthropathy. [place] oid intact. No acute fracture. Assessment spinal canal limited due to resolution and artifact. Hotel Yard[place] ior spondylosis and uncovertebral joint hypertrophy seen at multiple levels with multilevel foraminal encroachment. Incidental note is made of emphysematous changes of the lungs and apical pleural thick ening. Subpleural and sub-5 mm nodularity to small characterize. IMPRESSION: 1. There is no acute fracture or dislocation evident in the cervical spine. 2. No acute intracranial hemorrhage, mass effect, or midline shift is seen.
[2022-10-30 16:30] LABS: Cocaine Screen,Urine Detected (NotDetected); Urn Cannabinoid Scrn Not Detected (NotDetected)
[2022-10-30 16:31] LABS: Amphetamine Screen,Urine Not Detected (NotDetected); Barbiturate Screen,Urine Not Detected (NotDetected); Benzodiazepines Screen,Urine Not Detected (NotDetected); Methadone Screen, Urine Not Detected (NotDetected); Opiate Screen,Urine Not Detected (NotDetected); Oxycodone Screen, Urine Not Detected (NotDetected); Phencyclidine Screen,Urine Not Detected (NotDetected); Tricyclic Antidepressant,Urine Not Detected (NotDetected)
[2022-10-30 19:41] LABS: Basophils % (A) 0 %; Eosinophils % (A) 0 %; HCT 33.1 % (39.0-53.0); HGB 11.6 gm/dL (13.0-17.5); Lymphocytes # (A) 1.1 k/uL (1.0-4.8); Lymphocytes % (A) 15 %; MCH 33.4 pg (25.0-35.0); MCV 95.2 fL (80.0-100.0); Mean Platelet Volume 9.3; Monocytes # (A) 0.6 k/uL (0-1.0); Monocytes % (A) 8 %; Neutrophils # (A) 5.4 k/uL (1.3-7.7); Neutrophils % (A) 75 %; Platelet Count 173 k/uL (150-450); RBC 3.48 m/uL (4.30-5.90); RDW 12.8 % (11.5-15.5); WBC 7.2 k/uL (3.8-10.6)
[2022-10-30 19:55] LABS: ALT 30 U/L (4-49); AST 81 U/L (17-59); African American GFR (CKD) >90 (>60 ml/min/1.73 sqM); Albumin 4.1 g/dL (3.5-5.0); Alkaline Phosphatase 68 U/L (38-126); Anion Gap 5 mmol/L; Blood Urea Nitrogen 28 mg/dL (9-20); Calcium 8.9 mg/dL (8.4-10.2); Carbon Dioxide 30 mmol/L (22-30); Chloride 100 mmol/L (98-107); Glucose 142 mg/dL (74-99); Non-African American GFR(CKD) 88 (>60 ml/min/1.73 sqM); Potassium 4.1 mmol/L (3.5-5.1); Sodium 135 mmol/L (137-145); Total Bilirubin 1.6 mg/dL (0.2-1.3); Total Protein 6.2 g/dL (6.3-8.2)
[2022-10-30 21:57] LABS: Appearance,Urine Clear (Clear); Bilirubin,Urine Negative (Negative); Blood,Urine Negative (Negative); Color,Urine Yellow; Glucose,Urine (UA) Negative (Negative); Ketones,Urine 3+ (Negative); Leukocyte Esterase,Urine Negative (Negative); Nitrite,Urine Negative (Negative); PH, Urine 5.5 (5.0-8.0); Protein,Urine Trace (Negative); Specific Gravity,Urine 1.025 (1.001-1.035); Urobilinogen,Urine <2.0 mg/dL (<2.0)
[2022-10-31] MEDS ORDERED: LITHIUM CARBONATE 300 MG CAP PO STA (10:51)
[2022-10-31] MEDS: QUEtiapine 200 MG TAB PO SCH (21:17)
[2022-10-31] MEDS: LITHIUM CARBONATE 300 MG CAP PO SCH (21:17)
[2022-11-01] MEDS ORDERED: MAGNESIUM HYDROXIDE 2,400 MG/10 ML CUP PO PRN (14:51)
[2022-11-01] MEDS ORDERED: LORazepam 1 MG TAB PO PRN (14:51)
[2022-11-01] MEDS ORDERED: MAG HYDROX/AL HYDROX/SIMETH 355 ML BOTTLE PO PRN (14:51)
[2022-11-01] MEDS ORDERED: HALOPERIDOL LACTATE 5 MG/ML 1 ML VIAL IM PRN (14:51)
[2022-11-01] MEDS ORDERED: ACETAMINOPHEN TAB 325 MG TAB PO PRN (14:51)
[2022-11-01] MEDS ORDERED: LORazepam 2 MG/ML INJ IM PRN (14:55)
[2022-11-01] MEDS ORDERED: haloperidoL 5 MG TAB PO PRN (14:56)
[2022-11-01] MEDS ORDERED: QUEtiapine 100 MG TAB PO SCH (15:00)
[2022-11-01] MEDS: QUEtiapine 200 MG TAB PO SCH (20:44)
[2022-11-01] MEDS: LITHIUM CARBONATE 300 MG CAP PO SCH (20:45)
[2022-11-01] MEDS ORDERED: LITHIUM CARBONATE 300 MG CAP PO SCH (21:00)
[2022-11-02 12:34] LABS: Chol/HDL Ratio 2.79 Ratio; LDL Cholesterol,Calculated 68.5 mg/dL (0.0-131.0)
--- NOTE | 2022-11-02 13:50 | P.MDCNMH ---
History of Present Illness H&P Date: 11/02/22 Chief Complaint: medical clearance and management 57 year old man with history of cocaine abuse, bipolar disorder, and alcohol abuse presented to the mental health unit for evaluation of depression and fears of self harm. Medicine consulted for medical clearance and management. Patient has no medical complaints at this time. Denies history of HTN, HLD, DM, heart disease, kidney disease, liver disease. Denies fevers, chills, nausea, vomiting, chest pain, palps, syncope, presyncope, cough, dyspnea, abd pain, constipation, diarrhea, dyschezia, dysuria, numbness/weakness of extremities. Upon my evaluation, patient is hemodynamically stable on my evaluation. Labs re viewed and unremarkable. CT orbit and head reviewed and are normal. All Systems reviewed and pertinent positives and negatives noted in HPI, all other symptoms are negative Gen: in no apparent distress, resting comfortably in bed Eyes: PERRL, no scleral injection or icterus HENT: normocephalic, atraumatic, good hearing acuity, moist mucous membranes Neck: no tracheal deviation, full range of motion Resp: good air exchange, breathing comfortably with no accessory muscle use, no tactile fremitus CVS: good distal perfusion x 4, no pitting edema GI: soft, NTTP, ND, no hepatosplenomegaly : no suprapubic tenderness, no CVAT, parker catheter not present MSK: no clubbing, no cyanosis, no noted contractures of extremities Skin: no noted rashes, petechiae; temperature of skin is appropriate Neuro: moving all extremities without signs of weakness, CN II-XII intact Psych: cooperative, euthymic mood, insight and judgment intact Labs and imaging as above Assessment/plan: Polysubstance abuse Alcohol abuse -Cessation counseling recommended -Thiamine, multi-vitamin, folate Bipolar disorder -Care primary team Thank you for this consult. A member of our team is available 16/06, should any concerns or questions arise, please reach out via perfect serve. Past Medical History Past Medical History: Myocardial Infarction ([place]) Additional Past Medical History / Comment(s): vertigo, kidney stones, ETOH abuse, scoliosis History of Any Multi-Drug Resistant Organisms: None Reported Past Surgical History: No Surgical Hx Reported Additional Past Surgical History / Comment(s): lithrothripsy, cataracts Past Psychological History: Bipolar Smoking Status: Former smoker Past Alcohol Use History: Abuse, Daily, Heavy Past Drug Use History: Marijuana Medications and Allergies Home Medications Medication Instructions Recorded Confirmed Type [place] Carbonate 900 mg PO DIRECTED 10/30/22 10/30/22 History QUEtiapine [SEROquel] 200 mg PO DIRECTED 10/30/22 10/30/22 History Allergies Allergy/AdvReac Type Severity Reaction Status Date / Time No Known Allergies Allergy Verified 10/30/22 15:14 Physical Exam Osteopathic Statement: *. No significant issues noted on an osteopathic structural exam other than those noted in the History and Physical/Consult. Vitals: Vital Signs Temp Pulse Resp BP Pulse Ox 11/01/22 15:25 97.9 F 72 18 99/64 98 11/01/22 14:51 97.9 F Cranial Nerve Examination - Cranial Nerves Cranial Nerve II- Optic: Intact Cranial Nerve III- Oculomotor: Intact Cranial Nerve IV- Trochlear: Intact Cranial Nerve V- Trigeminal: Intact Cranial Nerve - Abducens: Intact Cranial Nerve VII- Facial: Intact Cranial Nerve VIII- Auditory: Intact Cranial Nerve IX- Glossopharyngeal: Intact Cranial Nerve X- Vagus: Intact Cranial Nerve XI- Accessory: Intact Cranial Nerve XII- Hypoglossal: Intact Results CBC & Chem 7: 10/30/22 19:31 10/30/22 19:31
[2022-11-02] MEDS: NICOTINE 14MG/24HR PATCH TRANSDERM SCH (14:04)
--- NOTE | 2022-11-02 16:36 | P.HP ---
Psychiatric H&P - . H&P Date: 11/02/22 History & Physical: IDENTIFYING DATA: Patient is a 57-year-old male with history of cocaine abuse, bipolar disorder, and alcohol abuse. HPI: Per EPS note, patient presented to the "ER by EMS because he was feeling down and called police. Pt states that he was recently released from prison on Friday and has been off his medications since Friday night. He is feeling hopeless, helpless, and fears he will harm himself. Pt is expressing suicidal i deation and that he wouldn't be safe to be discharged. Pt states that if he were to leave the hospital he would hang himself. Pt was petitioned by this RN for mental health treatment. Pt states that he just "feels like I an going downhill". "I have a bad name with the police departent here, no one listens to me". Pt expresses being drained emotionally and physically. RN asked about pts face as he has some swelling and bruising of the right eye, cheek bone, and lip. Pt states "I was drinking that night and I just bashed my head up against a tree". His [place] level in the ER was 0.3 on 10/31/22 and <0.2 on 11/01/22. His UDS is positive for cocaine on 10/30/22. His AST is elevated at 81 on 10/30/22. On assessment, he reports he is doing "a lot better" because he is starting to get a support team together. He reports he was released from prison on Friday after 97 day incarceration for threats against the hospital, and he claims on release from prison didn't have a place to go, didn't have his meds. His most recent medications included Depakote ER 500 mg QHS, [place] carbonate 900 mg QHS, Pristiq ER 50 mg daily, Seroquel 100 mg BID. He wants to restart his medications at [place] 900 mg QHS, Seroquel restarted at 100 mg QHS. He was restarted on his [place] and Seroquel last night and reports he is feeling better and denies depressed mood today. He states he does not want the Depakote or Pristiq due to sexual side effects. He is currently on probation. Patient denies any suicidal or homicidal ideation, intent or plan. At this time patient denies any auditory or visual hallucinations. Patient denies any flight of ideas racing thoughts and increased in goal directed behavior. Patient admits to using marijuana that he thinks was laced with cocaine. UDS was positive for cocaine on 10/30/22. He reports he drank a pint of alcohol after release from prison. He appears to minimize his drug and alcohol use. He smokes about 1 ppd of cigarettes. He denies alcohol withdrawal symptoms. PAST PSYCHIATRIC HISTORY: Patient states that he is diagnosed with Bipolar and PTSD, cocaine and alcohol abuse. Past medications: [place], Depakote, Seroquel, Prestiq. Previous psychiatric hospitalizations: This is his first admission. [facility] - he is not sure he is open with him Patient denies any history of suicide attempts in the past. PMH: Vertigo ALLERGIES: as per EMR CHEMICAL DEPENDENCY HISTORY: as per HPI FAMILY PSYCHIATRIC/SUBSTANCE USE HISTORY: Multiple family members with depression, anxiety, drug/alcohol abuse. He denies family history of suicide. SOCIAL HISTORY: Patient was born and raised in [place], [place]. Multiple times in prison for disorderly conduct. MENTAL STATUS EXAM: General Appearance: Patient appears to be stated age, dressed in hospital gown, has fair hygiene and grooming, shaved head and broken front tooth. Behavior: Patient is seated without any agitated behavior. Speech: Patient's speech is fluent and non-pressured. Mood/Affect: Patient reports their mood is "a lot better", affect is congruent and constricted. Suicidality/Homicidality: Patient denies having any homicidal ideation intent or plan. Denies any suicidal ideations intent or plan. Perceptions: Patient denies any visual hallucinations and denies any auditory hallucinations. Though content/process: There is no evidence of any delusional thought content and thought process is linear and goal-directed. Memory and concentration: AOX3, grossly intact for the purposes of this session. Can spell "WORLD" backwards. Judgment and insight: poor STRENGTHS/WEAKNESSES: strength is that patient is resilient. Weakness is that patient has poor judgment and history of substance abuse. INTELLECT: Average IMPRESSIONS: Unspecified mood disorder Rule out antisocial personality disorder Cocaine use disorder Cannabis use disorder Alcohol use disorder Homeless PLAN: -Patient is admitted under voluntary status to [facility] for stabilization of psychiatric symptoms and safety. Patient has signed adult voluntary form and medication consent and is placed in patient's chart. -Medications: Resume [place] 900 mg QHS for mood stabilization. Resume Seroquel at 100 mg QHS for mood/sleep. He prefers to not restart the Depakote or Pristiq. -Ativan and Haldol PRN for agitation/aggression -Patient was counselled on substance abuse and desired to cut back on use. -Patient was informed of the risks, benefits and side effects of the medication and patient verbally consented to taking the medications. Patient signed med consent form and was placed in chart. -Internal Medicine consult to perform medical evaluation and physical. -NRT - nicotine patch -SW on board for discharge planning. Encourage patient to participate in groups to work on coping skills. Allergies Allergy/AdvReac Type Severity Reaction Status Date / Time No Known Allergies Allergy Verified 10/30/22 15:14 Vital Signs Temp 97.9 F 11/01/22 15:25 Pulse 72 11/01/22 15:25 Resp 18 11/01/22 15:25 BP 99/64 11/01/22 15:25 Pulse Ox 98 11/01/22 15:25 FiO2 Intake & Output 11/01/22 11/02/22 11/02/22 18:59 06:59 18:59 Weight 60.6 kg Laboratory Last Values WBC 7.2 k/uL (3.8-10.6) 10/30/22 19:31 RBC 3.48 m/uL (4.30-5.90) L 10/30/22 19:31 Hgb 11.6 gm/dL (13.0-17.5) L 10/30/22 19:31 Hct 33.1 % (39.0-53.0) L 10/30/22 19:31 MCV 95.2 fL (80.0-100.0) 10/30/22 19:31 MCH 33.4 pg (25.0-35.0) 10/30/22 19:31 MCHC 35.0 g/dL (31.0-37.0) 10/30/22 19:31 RDW 12.8 % (11.5-15.5) 10/30/22 19:31 Plt Count 173 k/uL (150-450) 10/30/22 19:31 MPV 9.3 10/30/22 19:31 Neutrophils % 75 % 10/30/22 19:31 Lymphocytes % 15 % 10/30/22 19:31 Monocytes % 8 % 10/30/22 19:31 Eosinophils % 0 % 10/30/22 19:31 Basophils % 0 % 10/30/22 19:31 Neutrophils # 5.4 k/uL (1.3-7.7) 10/30/22 19:31 Lymphocytes # 1.1 k/uL (1.0-4.8) 10/30/22 19:31 Monocytes # 0.6 k/uL (0-1.0) 10/30/22 19:31 Eosinophils # 0.0 k/uL (0-0.7) 10/30/22 19:31 Basophils # 0.0 k/uL (0-0.2) 10/30/22 19:31 Sodium 135 mmol/L (137-145) L 10/30/22 19:31 Potassium 4.1 mmol/L (3.5-5.1) 10/30/22 19:31 Chloride 100 mmol/L (98-107) 10/30/22 19:31 Carbon Dioxide 30 mmol/L (22-30) 10/30/22 19:31 Anion Gap 5 mmol/L 10/30/22 19:31 BUN 28 mg/dL (9-20) H 10/30/22 19:31 Creatinine 0.97 mg/dL (0.66-1.25) 10/30/22 19:31 Est GFR (CKD-EPI)AfAm >90 (>60 ml/min/1.73 sqM) 10/30/22 19:31 Est GFR (CKD-EPI)NonAf 88 (>60 ml/min/1.73 sqM) 10/30/22 19:31 Glucose 142 mg/dL (74-99) H 10/30/22 19:[address] Glu mg/dL 97 11/01/22 15:10 Hemoglobin A1c 5.0 % (0.0-6.0) 11/01/22 15:10 Calcium 8.9 mg/dL (8.4-10.2) 10/30/22 19:31 Total Bilirubin 1.6 mg/dL (0.2-1.3) H 10/30/22 19: AST 81 U/L (17-59) H 10/30/22 19: ALT 30 U/L (4-49) 10/30/22 19: Alkaline Phosphatase 68 U/L (38-126) 10/30/22 19:31 Total Protein 6.2 g/dL (6.3-8.2) L 10/30/22 19: Albumin 4.1 g/dL (3.5-5.0) 10/30/22 19: Triglycerides 135.00 mg/dL (0.00-149.00) 10/30/22: Cholesterol 149.00 mg/dL (0.00-200.00) 10/30/22: LDL Cholesterol, Calc 68.5 mg/dL (0.0-131.0) 10/30/22: VLDL Cholesterol, Calc 27.00 mg/dL (5.00-40.00) 10/30/22: HDL Cholesterol 53.50 mg/dL (40.00-60.00) 10/30/22: Cholesterol/HDL Ratio 2.79 Ratio 10/30/22: TSH 2.380 mIU/L (0.465-4.680) 10/30/22 19: Urine Color Yellow 10/30/22: Urine Appearance Clear (Clear) 10/30/22 21: Urine pH 5.5 (5.0-8.0) 10/30/22 21: Ur Specific [place] 1.025 (1.001-1.035) 10/30/22 21: Urine Protein Trace (Negative) H 10/30/22 21: Urine Glucose (UA) Negative (Negative) 10/30/22 21: Urine Ketones 3+ (Negative) H 10/30/22 21: Urine Blood Negative (Negative) 10/30/22: Urine Nitrite Negative (Negative) 10/30/22: Urine Bilirubin Negative (Negative) 10/30/22 21: Urine Urobilinogen <2.0 mg/dL (<2.0) 10/30/22 21: Ur Leukocyte Esterase Negative (Negative) 10/30/22 21: Urine Opiates Screen Not Detected (NotDetected) 10/30/22 16:07 Ur Oxycodone Screen Not Detected (NotDetected) 10/30/22 16:07 Urine Methadone Screen Not Detected (NotDetected) 10/30/22 16:07 Ur Propoxyphene Screen Not Detected (NotDetected) 10/30/22 16:07 Ur Barbiturates Screen Not Detected (NotDetected) 10/30/22 16:07 U Tricyclic Antidepress Not Detected (NotDetected) 10/30/22 16:07 Ur Phencyclidine Scrn Not Detected (NotDetected) 10/30/22 16:07 Ur Amphetamines Screen Not Detected (NotDetected) 10/30/22 16:07 U Methamphetamines Scrn Not Detected (NotDetected) 10/30/22 16:07 U Benzodiazepines Scrn Not Detected (NotDetected) 10/30/22 16:07 [place] <0.2 mmol/L 11/01/22 15:11 Urine Cocaine Screen Detected (NotDetected) H 10/30/22 16:07 U Marijuana (THC) Screen Not Detected (NotDetected) 10/30/22 16:07 Coronavirus (PCR) Not Detected (Not Detectd) 10/30/22 19:31 11/02/22 16:11
[2022-11-02] MEDS: LITHIUM CARBONATE 300 MG CAP PO SCH (21:43)
[2022-11-02] MEDS: QUEtiapine 100 MG TAB PO SCH (21:43)
[2022-11-03] MEDS: NICOTINE 14MG/24HR PATCH TRANSDERM SCH (09:14)
[2022-11-03] MEDS: LITHIUM CARBONATE 300 MG CAP PO SCH (20:14)
[2022-11-03] MEDS: QUEtiapine 100 MG TAB PO SCH (20:15)
--- NOTE | 2022-11-03 20:15 | P.PN ---
Progress Note - Text Progress Note Date: 11/03/22 Interval history: Patient was seen wandering the hallways and was directable and agreeable to speak with journalists and other writers. He is social with peers on the unit and has not been agitated. At this time patient denies any suicidal or homicidal ideation, intent or plan. Denies any auditory or visual hallucinations. Patient denies any side effects from the medications and has been compliant with meds. He is focused on getting linked with [facility] and making sure he has his meds sent in to the pharmacy prior to discharge. Mental status exam: General Appearance: Patient appears to be stated age, dressed in hospital gown, has fair hygiene and grooming, shaved head and broken front tooth. Behavior: Patient is without any agitated behavior, superficially charming. Speech: Patient's speech is fluent and non-pressured. Mood/Affect: Patient reports his mood is "good", affect is congruent and constricted. Suicidality/Homicidality: Patient denies having any homicidal ideation intent or plan. Denies any suicidal ideation, intent or plan. Perceptions: Patient denies any visual hallucinations and denies any auditory hallucinations. Though content/process: There is no evidence of any delusional thought content and thought process is linear and goal-directed. Memory and concentration: AOX3, grossly intact for the purposes of this session. Judgment and insight: poor Assessment/Plan: Continue with current diagnosis. Patient continues to meet criteria for inpatient psychiatric admission for symptom stabilization and safety. Patient will be maintained on current psychotropic medication regimen. Check [place] level in 2 days. Monitor for medication compliance and for any psychotropic medication side effects. Will continue to monitor ongoing response to treatment. Encouraged participation in milieu.
[2022-11-04] MEDS: NICOTINE 14MG/24HR PATCH TRANSDERM SCH (09:52)
[2022-11-04 11:11] LABS: Basophils # (A) 0.1 k/uL (0-0.2); Basophils % (A) 1 %; Eosinophils # (A) 0.3 k/uL (0-0.7); Eosinophils % (A) 6 %; HCT 33.9 % (39.0-53.0); HGB 10.9 gm/dL (13.0-17.5); Lymphocytes # (A) 1.2 k/uL (1.0-4.8); Lymphocytes % (A) 24 %; MCH 32.4 pg (25.0-35.0); MCHC 32.3 g/dL (31.0-37.0); Monocytes # (A) 0.4 k/uL (0-1.0); Monocytes % (A) 7 %; Neutrophils # (A) 2.9 k/uL (1.3-7.7); Neutrophils % (A) 59 %; Platelet Count 162 k/uL (150-450); RBC 3.38 m/uL (4.30-5.90); RDW 12.9 % (11.5-15.5)
[2022-11-04 11:15] LABS: MCV 100.2 fL (80.0-100.0)
[2022-11-04 11:17] LABS: ALT 26 U/L (4-49); AST 29 U/L (17-59); African American GFR (CKD) >90 (>60 ml/min/1.73 sqM); Albumin 3.8 g/dL (3.5-5.0); Alkaline Phosphatase 65 U/L (38-126); Anion Gap 3 mmol/L; Blood Urea Nitrogen 16 mg/dL (9-20); Calcium 9.4 mg/dL (8.4-10.2); Carbon Dioxide 32 mmol/L (22-30); Chloride 104 mmol/L (98-107); Glucose 98 mg/dL (74-99); Lithium 0.6 mmol/L; Non-African American GFR(CKD) >90 (>60 ml/min/1.73 sqM); Potassium 4.8 mmol/L (3.5-5.1); Sodium 139 mmol/L (137-145); Total Bilirubin 0.2 mg/dL (0.2-1.3)
--- NOTE | 2022-11-04 11:53 | P.PN ---
Progress Note - Text Progress Note Date: 11/04/22 Interval History: Patient was seen wandering the hallways and was directable and agreeable to speak with sports book writer in the office. Currently, the patient is not reporting any suicidal or homicidal ideation. He denies any auditory or visual hallucinations. The patient has been adherent with his medication is not reporting any significant side effects this time. Patient reports that he plans to go to her own house upon discharge. The patient was informed that we are rechecking his blood work today as he had some electrolyte abnormalities and elevated liver enzymes. We are also going to observe for therapeutic levels of his lithium. Mental Status Exam: General Appearance: Patient appears to be stated age is alert, directable, and cooperative. Behavior: Patient is calmly seated without any agitated behavior. Speech: Patient's speech is fluent and nonpressured. Mood/Affect: Mood is improving mildly, affect is congruent and constricted. Patient was noted to be irritable, and he was not discharged today Suicidality/Homicidality: Patient denies having any suicidal or homicidal ideation intent or plan. Perceptions: Patient denies any visual hallucinations and denies any auditory hallucinations Though content/process: There is no evidence of any delusional thought content and thought process is linear and goal-directed. Memory and concentration: AOX3, grossly intact for the purposes of this session Judgment and insight: Improving mildly Vital Signs Temp 98.1 F 11/03/22 16:28 Pulse 107 H 11/03/22 16:28 Resp 20 11/03/22 16:28 BP 136/87 11/03/22 16:28 Pulse Ox 98 11/01/22 15:25 FiO2 Intake & Output 11/03/22 11/04/22 11/04/22 18:59 06:59 18:59 Weight 62.7 kg Laboratory Results - Last 24 Hours 11/04/22 11/04/22 10:24 10:24 WBC 5.0 RBC 3.38 L Hgb 10.9 L Hct 33.9 L MCV 100.2 H D MCH 32.4 MCHC 32.3 RDW 12.9 Plt Count 162 MPV 9.0 Neutrophils % 59 Lymphocytes % 24 Monocytes % 7 Eosinophils % 6 Basophils % 1 Neutrophils # 2.9 Lymphocytes # 1.2 Monocytes # 0.4 Eosinophils # 0.3 Basophils # 0.1 Sodium 139 Potassium 4.8 Chloride 104 Carbon Dioxide 32 H Anion Gap 3 BUN 16 Creatinine 0.92 Est GFR (CKD-EPI)AfAm >90 Est GFR (CKD-EPI)NonAf >90 Glucose 98 Calcium 9.4 Total Bilirubin 0.2 AST 29 ALT 26 Alkaline Phosphatase 65 Total Protein 6.0 L Albumin 3.8 Blossom 0.6 Assessment Unspecified mood disorder Rule out antisocial personality disorder Cocaine use disorder Cannabis use disorder Alcohol use disorder Homeless Plan: -Patient continues to meet criteria for inpatient psychiatric admission for symptom stabilization and safety. Patient has signed adult voluntary form and me dication consent and was placed in patient's chart. -Medications: Blossom 900 mg daily at bedtime for mood stabilization Seroquel 100 mg by mouth at bedtime with stabilization -When necessary Ativan and Haldol for agitation/aggression. -NRT - nicotine patch -SW on board for discharge planning. Encouraged the patient to participate in milieu.
[2022-11-04] MEDS: LITHIUM CARBONATE 300 MG CAP PO SCH (20:21)
[2022-11-04] MEDS: QUEtiapine 100 MG TAB PO SCH (20:21)
[2022-11-05 06:39] VITALS: BP 92/58; PULSE 69; RESP 17; TEMP 98.5
[2022-11-05] MEDS: NICOTINE 14MG/24HR PATCH TRANSDERM SCH (09:35)
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
== END 2022-11-05 13:50 | disposition home or self-care (01) | DRG 885 ==
LOC: EC 12:20 → 3MHU 11-01 14:42
PROVIDERS: ADMIT Psychiatry & Neurology Psychiatry; ATTEND Psychiatry & Neurology Psychiatry
DX: F31.9 Bipolar disorder, unspecified (principal); R45.851 Suicidal ideations; Z20.822 Contact with and (suspected) exposure to COVID-19; F43.10 Post-traumatic stress disorder, unspecified; F60.89 Other specific personality disorders; I25.2 Old myocardial infarction; D50.9 Iron deficiency anemia, unspecified; M41.9 Scoliosis, unspecified; Z65.3 Problems related to other legal circumstances; Z79.899 Other long term (current) drug therapy; Z91.51 Personal history of suicidal behavior; Z87.442 Personal history of urinary calculi; Z59.00 Homelessness unspecified; F17.210 Nicotine dependence, cigarettes, uncomplicated; F12.10 Cannabis abuse, uncomplicated; F14.10 Cocaine abuse, uncomplicated; F10.10 Alcohol abuse, uncomplicated; Z71.51 Drug abuse counseling and surveillance of drug abuser; Z71.41 Alcohol abuse counseling and surveillance of alcoholic
CPT/HCPCS: 36415; 70450; 70480; 72125; 80053; 80061; 80178; 80306; 81003; 82075; 83036; 84443; 85025; 87635; 90471; 90715; 99285

== ENCOUNTER 2023-06-20 09:13 | Emergency (ER) | payer OTHER ==
[2023-06-20 09:26] VITALS: PULSE 83; TEMP 98
[2023-06-20] MEDS ORDERED: CEPHALEXIN 500 MG CAP PO STA (09:35)
[2023-06-20] MEDS ORDERED: GELATIN SPONGE,ABSORB (LARGE) 1 EACH SPONGE TOPICAL STA (09:35)
--- NOTE | 2023-06-20 09:56 | ED ---
General Adult HPI - General Chief complaint: ENT Stated complaint: Dog Bite on Nose Time Seen by Provider: 06/20/23 09:27 Source: patient, RN notes reviewed, old records reviewed Mode of arrival: ambulatory Limitations: no limitations - History of Present Illness Initial comments: 58-year-old male presents after a dog bite. Patient states he was playing with his dog around 2 AM and the dog had bitten off the tip of his nose. He states the dog is healthy and fully vaccinated. He states that he was drinking alcohol and needed to wait for a ride to come to the emergency department. He presents after 9 AM. Patient states his tetanus is up-to-date. He denies any other injury. - Related Data Previous Rx's Medication Instructions Recorded [place] Carbonate 900 mg PO HS 30 Days cap 11/05/22 QUEtiapine [SEROquel] 100 mg PO HS #30 tab 11/05/22 Amoxic-Pot Clav 875-125Mg 1 tab PO Q12HR 10 Days #20 tab 06/20/23 [Augmentin 875-125] Allergies Allergy/AdvReac Type Severity Reaction Status Date / Time No Known Allergies Allergy Verified 06/20/23 09:21 Review of Systems ROS Statement: Those systems with pertinent positive or pertinent negative responses have been documented in the HPI. ROS Other: All systems not noted in ROS Statement are negative. Past Medical History Past Medical History: Myocardial Infarction ([place]) Additional Past Medical History / Comment(s): vertigo, kidney stones, ETOH abuse, scoliosis History of Any Multi-Drug Resistant Organisms: None Reported Past Surgical History: No Surgical Hx Reported Additional Past Surgical History / Comment(s): lithrothripsy, cataracts Past Psychological History: Bipolar Smoking Status: Former smoker Past Alcohol Use History: Abuse, Daily, Heavy Past Drug Use History: Marijuana General Exam Limitations: no limitations General appearance: alert, in no apparent distress Head exam: Present: atraumatic, normocephalic ENT exam: Present: other (The distal tip of the patient's nose is missing with exposed cartilage. ) Respiratory exam: Present: normal lung sounds bilaterally. Absent: respiratory distress, wheezes Cardiovascular Exam: Present: regular rate, normal rhythm GI/Abdominal exam: Present: soft. Absent: distended, tenderness Extremities exam: Present: normal inspection, normal capillary refill Neurological exam: Present: alert, oriented X3, CN II-XII intact. Absent: motor sensory deficit Psychiatric exam: Present: normal affect, normal mood Skin exam: Present: warm, dry Course Vital Signs 06/20/23 09:21 Temperature 98 F Pulse Rate 83 Medical Decision Making - Medical Decision Making Was pt. sent in by a medical professional or institution (FRANKO Linn, ROTARY DRILLER HELPER, urgent care, hospital, or shelter...) When possible be specific @ -No Did you speak to anyone other than the patient for history (EMS, parent, family, police, friend...)? What history was obtained from this source @ -No Did you review nursing and triage notes (agree or disagree)? Why? @ -I reviewed and agree with nursing and triage notes Were old charts reviewed (outside hosp., previous admission, EMS record, old EKG, old radiological studies, urgent care reports/EKG's, shelter records)? Report findings @ -No old charts were reviewed Differential Diagnosis (chest pain, altered mental status, abdominal pain women, abdominal pain men, vaginal bleeding, weakness, fever, dyspnea, syncope, headache, dizziness, GI bleed, back pain, seizure, CVA, palpatations, mental health, musculoskeletal)? @ -[Dog bite to the face EKG interpreted by me (3pts min.). @ -As above X-rays interpreted by me (1pt min.). @ -None done CT interpreted by me (1pt min.). @ -None done U/S interpreted by me (1pt. min.). @ -None done What testing was considered but not performed or refused? (CT, X-rays, U/S, labs)? Why? @ -None What meds were considered but not given or refused? Why? @ -None Did you discuss the management of the patient with other professionals (professionals i.e. FRANKO Linn, ROTARY DRILLER HELPER, lab, RT, psych nurse, director social welfare, dial buffer, teacher, contract officer, telehealth case manager)? Give summary @ -No Was smoking cessation discussed for >3mins.? @ -No Was critical care preformed (if so, how long)? @ -No Were there social determinants of health that impacted care today? How? (Homelessness, low income, unemployed, alcoholism, drug addiction, transportation, low edu. Level, literacy, decrease access to med. care, fci, rehab)? @ -No Was there de-escalation of care discussed even if they declined (Discuss DNR or withdrawal of care, Hospice)? DNR status @ -No What co-morbidities impacted this encounter? (DM, HTN, Smoking, COPD, CAD, Cancer, CVA, ARF, Chemo, Hep., AIDS, mental health diagnosis, sleep apnea, morbid obesity)? @ -[Alcohol use Was patient admitted / discharged? Hospital course, mention meds given and route, prescriptions, significant lab abnormalities, going to OR and other pertinent info. @ -58-year-old male with a dog bite to the distal tip of the nose. The tip of the nose is missing there is exposed cartilage. There is no repairable laceration. The skin is absent. This occurred 7 hours prior to arrival. I did cleanse the wound, applied a nonadherent dressing. Patient's tetanus is up-to-date he started on prophylactic antibiotics. I was awaiting callback by ENT as well as paged plastic surgery for recommendations regarding surgical repair and the patient eloped during this time. I was not able to discuss the risks prior to the patient leaving. Undiagnosed new problem with uncertain prognosis? @ -No Drug Therapy requiring intensive monitoring for toxicity (Heparin, Nitro, Insulin, Cardizem)? @ -No Were any procedures done? @ -No Diagnosis/symptom? @ Distal nose skin avulsion Acute, or Chronic, or Acute on Chronic? @ -[Acute Uncomplicated (without systemic symptoms) or Complicated (systemic symptoms)? @ -default Side effects of treatment? @ -No Exacerbation, Progression, or Severe Exacerbation? @ -No Poses a threat to life or bodily function? How? (Chest pain, [place], [place], pneumonia, PE, COPD, DKA, ARF, appy, cholecystitis, CVA, Diverticulitis, Homicidal, Suicidal, threat to staff... and all critical care pts) @ -[This injury does not pose a risk to life but does pose a significant cosmetic defect. Disposition Clinical Impression: Avulsion of nose, Dog bite Disposition: LEFT AGAINST MEDICAL ADVICE Condition: Undetermined Instructions (If sedation given, give patient instructions): Animal Bite (ED) Prescriptions: Amoxic-Pot Clav 875-125Mg [Augmentin 875-125] 1 tab PO Q12HR 10 Days #20 tab Is patient prescribed a controlled substance at d/c from ED?: No Referrals: Sunilkumar,Mini, MD [Primary Care Provider] - 1-2 days Goran Donald MD [STAFF PHYSICIAN] - 1-2 days Time of Disposition: 11:26
[2023-06-20] MEDS ORDERED: KETOROLAC 15 MG/ML 1 ML VIAL IM STA (10:56)
== END 2023-06-20 11:10 | disposition left against medical advice (07) ==
LOC: EC 09:13
DX: S08.812A Partial traumatic amputation of nose, initial encounter (principal); I25.2 Old myocardial infarction; F12.90 Cannabis use, unspecified, uncomplicated; Z87.891 Personal history of nicotine dependence; Z53.29 Procedure and treatment not carried out because of patient's decision for other reasons; W54.0XXA Bitten by dog, initial encounter
CPT/HCPCS: 96372; 99283

== ENCOUNTER 2024-05-22 17:39 | Emergency (ER) | payer OTHER ==
[2024-05-22 17:57] VITALS: BP 115/73; PULSE 100; RESP 20; TEMP 98
--- NOTE | 2024-05-22 18:52 | ED ---
General Adult HPI - General Chief complaint: Abdominal Pain Stated complaint: abd pain, vomitting Time Seen by Provider: 05/22/24 18:28 Source: patient Mode of arrival: ambulatory Limitations: no limitations - History of Present Illness Initial comments: Dictation was produced using [employer] dictation software. please excuse any grammatical, word or spelling errors. Chief Complaint: 59-year-old male presents to the ER for abdominal pain History of Present Illness: Patient is a 59-year-old male past medical history of kidney stones, vertigo states that he has been having 6 months of left-sided abdominal and flank pain. Patient has a history of kidney stones states that his left side feels exactly like when he had a kidney stone on the right. St ates that he had at his kidney stones management while in [place]. He states that he required shockwave lithotripsy. Patient [place] any fever however has been vomiting and diarrhea. States that the pain is colicky in nature. The ROS documented in this emergency department record has been reviewed and confirmed by me. Those systems with pertinent positive or negative responses have been documented in the HPI. All other systems are other negative and/or noncontributory. - Related Data Previous Rx's Medication Instructions Recorded [place] Carbonate 900 mg PO HS 30 Days cap 11/05/22 QUEtiapine [SEROquel] 100 mg PO HS #30 tab 11/05/22 Amoxic-Pot Clav 875-125Mg 1 tab PO Q12HR 10 Days #20 tab 06/20/23 [Augmentin 875-125] Allergies Allergy/AdvReac Type Severity Reaction Status Date / Time No Known Allergies Allergy Verified 05/22/24 17:57 Review of Systems ROS Statement: Those systems with pertinent positive or pertinent negative responses have been documented in the HPI. ROS Other: All systems not noted in ROS Statement are negative. Past Medical History Past Medical History: Myocardial Infarction ([place]) Additional Past Medical History / Comment(s): vertigo, kidney stones, ETOH abuse, scoliosis History of Any Multi-Drug Resistant Organisms: None Reported Past Surgical History: No Surgical Hx Reported Additional Past Surgical History / Comment(s): lithrothripsy, cataracts Past Psychological History: Bipolar Smoking Status: Former smoker Past Alcohol Use History: Abuse, Daily, Heavy Past Drug Use History: Marijuana General Exam - General Exam Comments Initial Comments: PHYSICAL EXAM: General Impression: Alert and oriented x3, not in acute distress HEENT: Normocephalic atraumatic, extra-ocular movements intact, pupils equal and reactive to light bilaterally, mucous membranes moist. Cardiovascular: Heart regular rate and rhythm Chest: Able to complete full sentences, no retractions, no tachypnea Abdomen: abdomen soft, non-tender, non-distended, no organomegaly Musculoskeletal: Pulses present and equal in all extremities, no peripheral edema Motor: no focal deficits noted Neurological: CN II-XII grossly intact, no focal motor or sensory deficits noted Skin: Intact with no visualized rashes Psych: Normal affect and mood Limitations: no limitations Course Vital Signs 05/22/24 17:53 Temperature 98.0 F Pulse Rate 100 Respiratory 20 Rate Blood Pressure 115/73 O2 Sat by Pulse 97 Oximetry Medical Decision Making - Medical Decision Making Was pt. sent in by a medical professional or institution (, PA, HIGH LEAD YARDER, urgent care, hospital, or senior living...) When possible be specific @ -No Did you speak to anyone other than the patient for history (EMS, parent, family, police, friend...)? What history was obtained from this source @ -No Did you review nursing and triage notes (agree or disagree)? Why? @ -I reviewed and agree with nursing and triage notes Were old charts reviewed (outside hosp., previous admission, EMS record, old EKG, old radiological studies, urgent care reports/EKG's, senior living records)? Report findings @ -No old charts were reviewed Differential Diagnosis (chest pain, altered mental status, abdominal pain women, abdominal pain men, vaginal bleeding, musculoskeletal, weakness, fever, dyspnea, syncope, headache, dizziness, GI bleed, back pain, seizure, CVA, palpatations, mental health)? @ -Differential Abdominal Pain Men: Appendicitis, cholecystitis, diverticulosis, ischemic bowel, pancreatitis, hepatitis, UTI, gastroenteritis, AAA, incarcerated hernia, bowel obstruction, constipation, inflammatory bowel, hepatitis, peptic ulcer disease, splenic infarction, perforated viscus, testicular torsion, this is not meant to be an all-inclusive list EKG interpreted by me (3pts min.). @ -None done X-rays interpreted by me (1pt min.). @ -None done CT interpreted by me (1pt min.). @ -Pending U/S interpreted by me (1pt. min.). @ -None done What testing was considered but not performed or refused? (CT, X-rays, U/S, labs)? Why? @ -None What meds were considered but not given or refused? Why? @ -None Was smoking cessation discussed for >3mins.? @ -No Were there social determinants of health that impacted care today? How? (Homelessness, low income, unemployed, alcoholism, drug addiction, transportation, low edu. Level, literacy, decrease access to med. care, alf, rehab)? @ -No Was there de-escalation of care discussed even if they declined (Discuss DNR or withdrawal of care, Hospice)? DNR status @ -No What co-morbidities impacted this encounter? (DM, HTN, Smoking, COPD, CAD, Canc er, CVA, ARF, Chemo, Hep., AIDS, mental health diagnosis, sleep apnea, morbid obesity)? @ -None Was patient admitted / discharged? Hospital course, mention meds given and route, prescriptions, significant lab abnormalities, going to OR and other pertinent info. @ -59-year-old male to the emergency department for months of left-sided flank pain. Vital signs upon arrival are within acceptable limits. Labs ordered. Labs are unremarkable. Patient became very impatient and did not want to wait any longer. CT scan had been ordered 6:50 PM. At 8:16 PM patient states that he was tired of waiting and adamantly insisted that he needs to be discharged because we are unable to offer him any sort of treatment. It was discussed with patient that we will need to scan in order to decide what the best course of action. Patient states he wants to just leave take a warm hot shower to treat his pain. He was upset. He was offered pain medications states he did not want any. Patient understands that there could be something serious which could be life-threatening. Patient was of sound mind and judgment at the time of our discussion. Risks, Benefits, and Treatment alternatives were discussed in detail with the patient. The patient is alert and oriented X 3 and has the capacity to make an informed decision. The risks of increased morbidity including the possibly of were explained to and understood by the patient who is choosing to leave against medical advice. The patient is encouraged to return any time should they want further treatment and diagnostic investigation. Patient signed out AGAINST MEDICAL ADVICE. Did you discuss the management of the patient with other professionals (professionals i.e. , PA, HIGH LEAD YARDER, lab, RT, psych nurse, clinical social work therapist, shingler, teacher, staff electronic warfare officer, showcase trimmer)? Give summary @ -No Was critical care preformed (if so, how long)? @ -No Undiagnosed new problem with uncertain prognosis? @ -No Drug Therapy requiring intensive monitoring for toxicity (Heparin, Nitro, Insulin, Cardizem)? @ -No Were any procedures done? @ -No Diagnosis/symptom? Acute, or Chronic, or Acute on Chronic? Uncomplicated (without systemic symptoms) or Complicated (systemic symptoms)? @ -Flank pain Side effects of treatment? @ -No Exacerbation, Progression, or Severe Exacerbation? @ -No Poses a threat to life or bodily function? How? (Chest pain, [place], [place], pneumonia, PE, COPD, DKA, ARF, appy, cholecystitis, CVA, Diverticulitis, Homicidal, Suicidal, threat to staff... and all critical care pts) @ -Undetermined - Lab Data Result diagrams: 05/22/24 19:00 05/22/24 19:00 Lab Results 05/22/24 05/22/24 05/22/24 Range/Units 19:00 19:00 19:00 WBC 4.4 (3.8-10.6) k/uL RBC 3.76 L (4.30-5.90) m/uL Hgb 13.0 (13.0-17.5) gm/dL Hct 39.4 (39.0-53.0) % MCV 104.9 H (80.0-100.0) fL MCH 34.5 (25.0-35.0) pg MCHC 32.9 (31.0-37.0) g/dL RDW 12.9 (11.5-15.5) % Plt Count 160 (150-450) k/uL MPV 7.9 Neutrophils % 44 % Lymphocytes % 40 % Monocytes % 8 % Eosinophils % 4 % Basophils % 1 % Neutrophils # 1.9 (1.3-7.7) k/uL Lymphocytes # 1.7 (1.0-4.8) k/uL Monocytes # 0.3 (0-1.0) k/uL Eosinophils # 0.2 (0-0.7) k/uL Basophils # 0.0 (0-0.2) k/uL Macrocytosis Slight PT 11.6 (10.0-12.5) sec INR 1.1 (<1.2) APTT 24.5 (22.0-30.0) sec Sodium 138 (137-145) mmol/L Potassium 3.6 (3.5-5.1) mmol/L Chloride 108 H (98-107) mmol/L Carbon Dioxide 25 (22-30) mmol/L Anion Gap 5 mmol/L BUN 14 (9-20) mg/dL Creatinine 0.66 (0.66-1.25) mg/dL Est GFR (CKD-EPI)AfAm >90 (>60 ml/min/1.73 sqM) Est GFR (CKD-EPI)NonAf >90 (>60 ml/min/1.73 sqM) Glucose 93 (74-99) mg/dL Calcium 9.5 (8.4-10.2) mg/dL Total Bilirubin 0.7 (0.2-1.3) mg/dL AST 40 (17-59) U/L ALT 31 (4-49) U/L Alkaline Phosphatase 40 (38-126) U/L Total Protein 6.3 (6.3-8.2) g/dL Albumin 4.2 (3.5-5.0) g/dL Lipase 41 (23-300) U/L Disposition Clinical Impression: Flank pain Disposition: LEFT AGAINST MEDICAL ADVICE Is patient prescribed a controlled substance at d/c from ED?: No Referrals: None,Stated [Primary Care Provider] - 1-2 days
[2024-05-22 19:08] LABS: Basophils % (A) 1 %; Eosinophils # (A) 0.2 k/uL (0-0.7); Eosinophils % (A) 4 %; HCT 39.4 % (39.0-53.0); Lymphocytes # (A) 1.7 k/uL (1.0-4.8); Lymphocytes % (A) 40 %; MCH 34.5 pg (25.0-35.0); MCHC 32.9 g/dL (31.0-37.0); MCV 104.9 fL (80.0-100.0); Macrocytosis Slight; Mean Platelet Volume 7.9; Monocytes # (A) 0.3 k/uL (0-1.0); Monocytes % (A) 8 %; Neutrophils # (A) 1.9 k/uL (1.3-7.7); Neutrophils % (A) 44 %; Platelet Count 160 k/uL (150-450); RBC 3.76 m/uL (4.30-5.90); RDW 12.9 % (11.5-15.5); WBC 4.4 k/uL (3.8-10.6)
[2024-05-22 19:20] LABS: ALT 31 U/L (4-49); AST 40 U/L (17-59); African American GFR (CKD) >90 (>60 ml/min/1.73 sqM); Albumin 4.2 g/dL (3.5-5.0); Alkaline Phosphatase 40 U/L (38-126); Anion Gap 5 mmol/L; Blood Urea Nitrogen 14 mg/dL (9-20); Calcium 9.5 mg/dL (8.4-10.2); Carbon Dioxide 25 mmol/L (22-30); Chloride 108 mmol/L (98-107); Glucose 93 mg/dL (74-99); Lipase 41 U/L (23-300); Non-African American GFR(CKD) >90 (>60 ml/min/1.73 sqM); Potassium 3.6 mmol/L (3.5-5.1); Sodium 138 mmol/L (137-145); Total Bilirubin 0.7 mg/dL (0.2-1.3); Total Protein 6.3 g/dL (6.3-8.2)
[2024-05-22 19:26] LABS: INR 1.1 (<1.2); Partial Thromboplastin Time 24.5 sec (22.0-30.0); Prothrombin Time 11.6 sec (10.0-12.5)
== END 2024-05-22 20:21 | disposition left against medical advice (07) ==
LOC: EC 17:39
DX: R10.9 Unspecified abdominal pain (principal); Z53.29 Procedure and treatment not carried out because of patient's decision for other reasons; Z87.891 Personal history of nicotine dependence
CPT/HCPCS: 36415; 80053; 83690; 85025; 85610; 85730; 99284